=== PATIENT | female | born 1990 | race Caucasian/White ===

== ENCOUNTER 2020-11-08 16:09 | Emergency (ER) | payer SELFPAY ==
[~2020-11-08] VITALS: Ht 157.5 cm; Wt 77.1 kg
[2020-11-08 16:22] VITALS: BP 128/78
[2020-11-08] MEDS ORDERED: Lidocaine 1% Plain 30 ml INJ ONE (16:45)
[2020-11-08 16:47] VITALS: BP 128/78
--- NOTE | 2020-11-08 16:48 | NUR ---
ED Nurse Note:pt stated that she fell last night onto a mirror and cut her buttock/thigh area on the proximal side of thigh
[2020-11-08] MEDS ORDERED: Tetanus/Diptheria/Pertussis IM ONE ×2 (17:00→17:01)
--- NOTE | 2020-11-08 17:58 | Emergency Room Report ---
History of Present Illness General Chief Complaint: Laceration Source: Patient Present Illness HPI 29-year-old female with no signal past medical history here complaining of 2 laceration left posterior thigh that occurred 1 night prior to arrival to ED. Patient reports that a big mirror fell on her and broke. Patient reported that she removed all piece of glass. A 2 cm linear laceration noted left posterior thigh as well as 1 cm nonlinear laceration left posterior thigh medially. Minimal bleeding noted. Patient is not up-to-date with tetanus shot. Denies other injury, has full range of motion of the leg, denies any tingling numbness. Has full strength in both lower and upper extremities. Denies . Denies fever and chills. Allergies: Coded Allergies: No Known Allergies (Unverified , 11/08/20) COVID-19 Screening Contact w/high risk pt: No Experienced COVID-19 symptoms?: No COVID-19 Testing performed AGRICULTURAL PURCHASING AGENT: No Patient History Past Medical History: see triage record Past Surgical History: none Pertinent Family History: none Last Menstrual Period: 10/26/20 Now: No Immunizations: other - tdap given today Reviewed Nursing Documentation: PMH: Agreed; PSxH: Agreed Nursing Documentation-PMH Past Medical History: No Stated History Review of Systems All Other Systems: negative except mentioned in HPI Physical Exam Vital Signs Date Time Temp Pulse Resp B/P (MAP) Pulse Ox O2 Delivery O2 Flow Rate FiO2 11/08/20 16:22 97.7 106 24 128/78 (95) 98 Room Air Sp02 EP Interpretation: reviewed, normal General Appearance: no apparent distress, alert, GCS 15, non-toxic Head: normocephalic, atraumatic Eyes: bilateral eye normal inspection, bilateral eye PERRL ENT: hearing grossly normal, no angioedema, normal voice Neck: supple Respiratory: no retraction, no accessory muscle use Cardiovascular #1: no edema, no gallop, no murmur Gastrointestinal: non tender Rectal: deferred Genitourinary: no CVA tenderness Musculoskeletal: back normal, non-tender Neurologic: alert, motor strength/tone normal, oriented x3, sensory intact, res ponsive, speech normal Psychiatric: judgement/insight normal, memory normal, mood/affect normal, no suicidal/homicidal ideation Skin: laceration - 2cm linear lac left posterior thigh, 1cm non-linear lac left posterior thigh medially Lymphatic: no adenopathy Procedures Laceration/Wound Repair Laceration/Wound Repair #1: Consent: Verbal Wound Location: lower extremity - left posterior thigh Wound's Depth, Shape: superficial Wound Length (cm): 2 Wound Explored: clean Anesthesia: 1% Lidocaine Volume Anesthetic (ccs): 7 Wound Debrided: minimal Wound Repaired With: sutures Suture Size/Type: 4:0, proline Number of Sutures: 9 Layer Closure?: Yes Sterile Dressing Applied?: Yes Splint Applied?: No Sling Applied?: No Patient Tolerated: Well Complications: None Laceration/Wound Repair #2: Consent: Verbal Wound Location: lower extremity - left posterior thigh medially Wound's Depth, Shape: superficial Wound Length (cm): 1 Wound Explored: clean Anesthesia: 1% Lidocaine Volume Anesthetic (ccs): 3 Wound Debrided: minimal Wound Repaired With: sutures, Dermabond Suture Size/Type: 4:0, proline Number of Sutures: 5 Layer Closure?: Yes Sterile Dressing Applied?: Yes Splint Applied?: No Sling Applied?: No Patient Tolerated: Well Complications: None Medical Decision Making PA Attestation All my diagnosis and treatment plans were reviewed ad discussed with my supervising physician Dr. Gotti Diagnostic Impression: Primary Impression: Laceration of leg ER Course 29-year-old female with no signal past medical history here complaining of 2 laceration left posterior thigh that occurred 1 night prior to arrival to ED. Patient reports that a big mirror fell on her and broke. Patient reported that she removed all piece of glass. A 2 cm linear laceration noted left posterior thigh as well as 1 cm nonlinear laceration left posterior thigh medially. Minimal bleeding noted. Patient is not up-to-date with tetanus shot. Denies other injury, has full range of motion of the leg, denies any tingling numbness. Has full strength in both lower and upper extremities. Denies . Denies fever and chills. Ddx considered but are not limited to : Superficial laceration, deep laceration, tendon involvement with laceration, laceration with foreign body Vital signs: are WNL, pt. is afebrile H&PE are most consistent with: Laceration of spine ORDERS: Augmentin, mupirocin ointment, Motrin, x-ray femur ED INTERVENTIONS: Tdap, wound clean and closure DISCHARGE: At this time pt. is stable for d/c to home. Will provide printed patient care instructions, and any necessary prescriptions. Care plan and follow up instructions have been discussed with the patient prior to discharge. Sutures to be removed in 7 to 10 days, patient indications directed, if worsening symptoms return to the emergency room Other X-Ray Diagnostic Results Other X-Ray Diagnostic Results : X-Ray ordered: Left femur # of Views/Limited Vs Complete: 2 View Indication: Pain EP Interpretation: Yes PA Xray: Interpretation reviewed, by supervising MD, and agrees with findings. Interpretation: no dislocation, no soft tissue swelling, no fractures, other - No foreign body noted Impression: No acute disease Electronically Signed by: Ted Reza PA-C Last Vital Signs Date Time Temp Pulse Resp B/P (MAP) Pulse Ox O2 Delivery O2 Flow Rate FiO2 11/08/20 16:47 97.7 24 128/78 98 Room Air 11/08/20 16:22 106 Disposition: HOME, SELF-CARE Condition: Stable Scripts Ibuprofen* (MOTRIN*) 600 Mg Tablet 600 MG ORAL Q6H PRN for For Pain, #30 TAB 0 Refills Prov: Ted Cunningham 11/08/20 Mupirocin* (MUPIROCIN*) 22 Gm Oint...g. 1 APPLIC TOPIC THREE TIMES A DAY, #22 GM Prov: Ted Cunningham 11/08/20 Amoxicillin/Potassium Clav 875-125* (AUGMENTIN 875-125 TABLET*) 1 Each Tablet 1 TAB ORAL TWICE A DAY for 10 Days, #20 TAB Prov: Ted Cunningham 11/08/20 Referrals: NOT CHOSEN [facility]/,REFERRING (PCP) Patient Instructions: Laceration Care, Adult Additional Instructions: Take medication as directed, follow primary care provider, sutures to be removed in 7 to 10 days, if worsening symptom return to emergency room Ted Cunningham Nov 08, 2020 17:58
[2020-11-08] MEDS ORDERED: MUPIROCIN22 GM TOPIC (17:59)
[2020-11-08] MEDS ORDERED: AUGMENTIN 875-1 EAC1 ORAL (17:59)
[2020-11-08] MEDS ORDERED: IBUPROFEN600 M1 ORAL (17:59)
--- NOTE | 2020-11-08 18:20 | NUR ---
ER DISCHARGE NOTE: Patient is cleared to be discharged per ERMD, pt is aox4, on room air, with stable vital signs. pt was given dc and prescription instructions, educated pt in regards to stitches, pt was able to verbalize understanding. pt is able to ambulate with steady gait. pt took all belongings.
--- NOTE | 2020-11-08 22:02 | Diagnostic Imaging Report ---
Indication: Trauma, pain Technique: 2 views of the left femur Comparison: none Findings: No acute fracture. No dislocation. No radiopaque foreign body. Impression: Negative
== END 2020-11-08 18:21 | disposition home or self-care (01) ==
LOC: EMR 16:48
DX: S71.112A Laceration without foreign body, left thigh, initial encounter (principal); Z23 Encounter for immunization; W25.XXXA Contact with sharp glass, initial encounter; Y92.9 Unspecified place or not applicable
CPT/HCPCS: 12002; 73552; 90471; 90715; 99283; J2001

== ENCOUNTER 2020-11-16 13:15 | Emergency (ER) | payer MEDICAID ==
[~2020-11-16] VITALS: Ht 157.5 cm; Wt 77.1 kg
[~2020-11-16 13:15] MED LIST: AUGMENTIN 875-1 EAC1 ORAL; IBUPROFEN600 M1 ORAL; MUPIROCIN22 GM TOPIC
[2020-11-16 13:30] VITALS: BP 136/81
[2020-11-16 14:20] VITALS: BP 111/76
--- NOTE | 2020-11-16 14:45 | Emergency Room Report ---
History of Present Illness General Chief Complaint: Wound Recheck/Suture Removal Source: Patient Present Illness HPI Patient is a 29-year-old female who presents to the ER for wound check and possible suture removal. Patient states that a mirror broke cutting her left posterior thigh on 215. Patient came to the emergency room and had sutures placed, tetanus update and was given oral and topical antibiotics. Patient denies any fever or chills. Patient states that it is painful sometimes to touch but denies any discharge. Allergies: Coded Allergies: No Known Allergies (Unverified , 11/08/20) COVID-19 Screening Contact w/high risk pt: No Experienced COVID-19 symptoms?: No COVID-19 Testing performed HYDRAULIC TESTER: No Patient History Last Menstrual Period: 10/26/20 Now: No Reviewed Nursing Documentation: PMH: Agreed; PSxH: Agreed Nursing Documentation-PMH Past Medical History: No Stated History Review of Systems All Other Systems: negative except mentioned in HPI Physical Exam Vital Signs Date Time Temp Pulse Resp B/P (MAP) Pulse Ox O2 Delivery O2 Flow Rate FiO2 11/16/20 13:18 98.2 97 18 136/81 (99) 97 11/16/20 14:20 Room Air Sp02 EP Interpretation: reviewed, normal General Appearance: no apparent distress, alert, GCS 15, non-toxic Head: normocephalic, atraumatic Eyes: bilateral eye normal inspection, bilateral eye PERRL ENT: hearing grossly normal, normal pharynx, no angioedema, normal voice Neck: full range of motion, supple/symm/no masses Respiratory: chest non-tender, lungs clear, normal breath sounds, speaking full sentences Cardiovascular #1: regular rate, rhythm Gastrointestinal: non tender, soft Rectal: deferred Musculoskeletal: normal range of motion Neurologic: frame coverer III-XII nml as tested, oriented x3 Psychiatric: no suicidal/homicidal ideation Skin: other - Left posterior thigh healing lacerations 3 cm and 4-1/2 cm no purulent discharge no surrounding erythema no crepitus Lymphatic: no adenopathy Medical Decision Making Diagnostic Impression: Primary Impression: Encounter for wound re-check ER Course Local wound care performed. Sutures need to stay in place as the wound is not completely healed. Steri-Strips have been placed. Patient will continue with oral and topical antibiotics. Patient will return to the ER in 1 week for suture removal. After discussing risks and benefits of further diagnostics, treatment plans, as well as indications for and risks of admission, the patient is agreeable to being discharged home. I have explained that their evaluation and treatment in the emergency department today is an important step towards them achieving better health but that their evaluation today is not intended to replace further evaluation and treatment by a physician in their local clinic. I have explained that while the current findings suggest no immediate life threatening emergency they will require further evaluation and treatment by a physician of their choice in their area. They understand that it will be necessary for them to review the final reports of their ED visit with their clinic physician. We have reviewed indications for return to the Emergency Department. I have explained that additional time may need to pass and/or additional testing as an outpatient may be necessary before a definitive diagnosis can be made. They tell me they are willing to follow up as instructed within the timeframe I recommend. They appear to understand what we discussed. Additionally they understand that if they are unable to be seen by an outpatient physician they are welcome, and in fact should, return to the Emergency Department for a repeat evaluation. The patient is stable at time of discharge. Last Vital Signs Date Time Temp Pulse Resp B/P (MAP) Pulse Ox O2 Delivery O2 Flow Rate FiO2 11/16/20 14:20 98.2 61 18 111/76 99 Room Air Disposition: HOME, SELF-CARE Condition: Stable Referrals: NOT CHOSEN [facility]/MD,REFERRING (PCP) Patient Instructions: Wound Check Additional Instructions: Please return to the emergency room in 7 days for suture removal. The patient was provided with discharge instructions, notified to follow-up with a primary care doctor and or specialist in the next 24-48 hours, and to return to the ED if they have worsening of their symptoms. Please note that this report is being documented using [employer] technology. This can lead to erroneous entry secondary to incorrect interpretation by the dictating instrument. Lisa Mckeon M.D. Nov 16, 2020 14:45
== END 2020-11-16 14:26 | disposition home or self-care (01) ==
LOC: EMR 13:47
DX: Z48.02 Encounter for removal of sutures (principal); S71.112A Laceration without foreign body, left thigh, initial encounter; W25.XXXA Contact with sharp glass, initial encounter; Y92.9 Unspecified place or not applicable
CPT/HCPCS: 99281

== ENCOUNTER 2020-11-24 14:32 | Emergency (ER) | payer MEDICAID ==
[~2020-11-24] VITALS: Ht 157.5 cm; Wt 77.1 kg
--- NOTE | 2020-11-24 15:27 | Emergency Room Report ---
History of Present Illness General Chief Complaint: Wound Recheck/Suture Removal Source: Patient Present Illness HPI 29-year-old female presents to the emergency department for suture removal of sutures that were placed in the emergency department for laceration of the left thigh over 10 days ago. Patient reports she initially returned after 1 week to have sutures checked but was told to allow laceration to heal longer. She denies pain, erythema, warmth, fevers, chills, bleeding or discharge. Patient reports he is up-to-date with vaccinations. Patient denies taking blood thinning medications. No other aggravating or relieving factors. Allergies: Coded Allergies: No Known Allergies (Unverified , 11/24/20) COVID-19 Screening Contact w/high risk pt: No Experienced COVID-19 symptoms?: No COVID-19 Testing performed MOTEL MAID: No Patient History Past Medical History: see triage record Past Surgical History: none Pertinent Family History: none Last Menstrual Period: 10/26/20 Now: No Immunizations: UTD Reviewed Nursing Documentation: PMH: Agreed; PSxH: Agreed Nursing Documentation-PMH Past Medical History: No Stated History Review of Systems All Other Systems: negative except mentioned in HPI Physical Exam Vital Signs Date Time Temp Pulse Resp B/P (MAP) Pulse Ox O2 Delivery O2 Flow Rate FiO2 11/24/20 15:20 98.1 90 18 133/85 (101) 96 Room Air Sp02 EP Interpretation: reviewed, normal General Appearance: no apparent distress, alert, GCS 15, non-toxic Head: normocephalic, atraumatic Eyes: bilateral eye normal inspection, bilateral eye PERRL ENT: hearing grossly normal, normal voice Neck: full range of motion Respiratory: lungs clear, normal breath sounds, speaking full sentences Cardiovascular #1: regular rate, rhythm Musculoskeletal: normal range of motion, gait/station normal, non-tender Neurologic: alert, motor strength/tone normal, oriented x3, sensory intact, responsive, speech normal Psychiatric: judgement/insight normal Skin: wd healing/no infection noted - healed lacerations of the Left Thigh. Sutures are in place Medical Decision Making PA Attestation Dr. Hansen is my supervising Physician whom patient management has been discussed with. Diagnostic Impression: Primary Impression: Encounter for removal of sutures ER Course 29-year-old female presents to the emergency department for suture removal of sutures that were placed in the emergency department for laceration of the left thigh over 10 days ago. Patient reports she initially returned after 1 week to have sutures checked but was told to allow laceration to heal longer. She denies pain, erythema, warmth, fevers, chills, bleeding or discharge. Patient reports he is up-to-date with vaccinations. Patient denies taking blood thinning medica tions. No other aggravating or relieving factors. Ddx considered but are not limited to laceration, tendon injury, cellulitis, dehiscence. Vital signs: are WNL, pt. is afebrile H&PE are most consistent with: healed lacerations of the Left Thigh ORDERS: none required at this time, the diagnosis is clinical ED INTERVENTIONS: - 8 Sutures removed. DISCHARGE: At this time pt. is stable for d/c to home. Will provide printed patient care instructions, and any necessary prescriptions. Care plan and follow up instructions have been discussed with the patient prior to discharge. Last Vital Signs Date Time Temp Pulse Resp B/P (MAP) Pulse Ox O2 Delivery O2 Flow Rate FiO2 11/24/20 15:20 98.1 90 18 133/85 (101) 96 Room Air Status: improved Disposition: HOME, SELF-CARE Condition: Stable Referrals: NOT CHOSEN [facility]/MD,REFERRING (PCP) Patient Instructions: Wound Closure Removal Additional Instructions: Take medications as directed. Follow up with a Primary Care Provider in 3-5 days, even if your symptoms have resolved. Return sooner to ED if new symptoms occur, or current symptoms become worse. - Please note that this Emergency Department Report was dictated using [employer] technology software, occasionally this can lead to erroneous entry secondary to interpretation by the dictation equipment. Tuyet Turcios Nov 24, 2020 15:27
--- NOTE | 2020-11-24 15:42 | NUR ---
pt arrived for suture recehck. pt denies cough/fever/chills. pt denies drainage. pt denies allergies, pt denies pmh.
[2020-11-24 15:44] VITALS: BP 133/85
--- NOTE | 2020-11-24 15:46 | NUR ---
ED Nurse Note: Pt cleared by health care Provider for discharge. DC instructions/prescription was given and explained to pt and verbalized understanding of teachings. All medical deviecs such as ID band removed. Pt is AAO x4, ambulatory and left with all personal belongings.
== END 2020-11-24 15:46 | disposition home or self-care (01) ==
LOC: EMR 15:22
DX: Z48.02 Encounter for removal of sutures (principal); S71.112D Laceration without foreign body, left thigh, subsequent encounter; X58.XXXD Exposure to other specified factors, subsequent encounter
CPT/HCPCS: 99281